=== PATIENT | female | born 1990 | race Asian ===

== ENCOUNTER 2019-05-05 00:27 | Inpatient (IN) | payer MEDICAID ==
[~2019-05-05] VITALS: Ht 165.1 cm; Wt 100.7 kg
[~2019-05-05 00:27] MED LIST: DSS100 PO; IBUP-2071 PO; PNV1TABL54 PO
[2019-05-05 01:23] LABS: GLUCOMETER DEV NAME(LOC) 4S.; GLUCOSE,POINT OF CARE 99 MG/DL (70-110)
[2019-05-05] MEDS ORDERED: OXYTOCIN 30 UNITS/LACT RINGERS 500 ML IV ONE (01:28)
[2019-05-05] MEDS ORDERED: RINGERS SOLUTION,LACTATED 1,000 ML IV SCH (01:28)
[2019-05-05] MEDS ORDERED: RINGERS SOLUTION,LACTATED 1,000 ML IV PRN (01:28)
[2019-05-05] MEDS ORDERED: METOCLOPRAMIDE HCL 5 MG/ML 2 ML VIAL IVP PRN (01:30)
[2019-05-05] MEDS ORDERED: MINERAL OIL 90 ML BOTTLE TP ONE (01:30)
[2019-05-05] MEDS ORDERED: CITRIC ACID/SODIUM CITRATE 30 ML SOLUTION UDCUP PO PRN (01:30)
[2019-05-05] MEDS ORDERED: MINERAL OIL 30 ML UDCUP VG ONE (01:45)
[2019-05-05 01:55] VITALS: BP 134/81
[2019-05-05] MEDS ORDERED: GLYB2.5 PO (02:23)
[2019-05-05 02:29] LABS: BASOPHILS % (AUTO) 0.4 % (0.0-2.0); EOSINOPHILS % (AUTO) 0.8 % (1.0-6.0); HEMATOCRIT 37.4 % (36-46); LYMPHOCYTES # (AUTO) 1.2 K/uL (1.0-4.8); LYMPHOCYTES % (AUTO) 15.4 % (22.0-44.0); MEAN CORPUSCULAR HEMOGLOBIN 32.5 pg (26.0-34.0); MEAN CORPUSCULAR HGB CONC 34.6 G/dL (31.0-37.0); MEAN CORPUSCULAR VOLUME 94 fL (80-100); MONOCYTES # (AUTO) 0.8 K/uL (0.1-1.0); MONOCYTES % (AUTO) 10.2 % (2.0-9.0); NEUTROPHILS # (AUTO) 5.8 K/uL (1.8-7.7); NEUTROPHILS % (AUTO) 73.2 % (40.0-70.0); PLATELET COUNT (AUTO)-OB 180 K/uL (150-450); RED BLOOD CELL COUNT(AUTO) 3.99 MIL/uL (4.00-5.20); RED CELL DISTRIBUTION WIDTH 12.6 % (11.5-14.5)
[2019-05-05] MEDS ORDERED: ROPIVACAINE HCL/PF 0.2% 100 ML ED ONE (02:49)
[2019-05-05] MEDS ORDERED: ROPIVACAINE HCL/PF 0.2% 100 ML ED PRN (03:08)
[2019-05-05] MEDS ORDERED: DiphenhydrAMINE HCL 50 MG/ML VIAL IVP PRN (03:15)
[2019-05-05] MEDS ORDERED: NALBUPHINE HCL 10 MG/ML VIAL IVP PRN (03:15)
[2019-05-05] MEDS ORDERED: ONDANSETRON HCL 4 MG/2 ML VIAL IVP PRN (03:15)
[2019-05-05] MEDS ORDERED: BENZOCAINE 20%/MENTHOL 56 GM SPRAY CANISTER TP PRN (06:45)
[2019-05-05] MEDS ORDERED: GLYCERIN/WITCH HAZEL LEAF 40 PADS JAR TP PRN (06:45)
[2019-05-05] MEDS ORDERED: ACETAMINOPHEN/CODEINE 300-30 MG TABLET PO PRN ×2 (06:45)
[2019-05-05] MEDS ORDERED: LANOLIN 7 GM OINTMENT TP PRN (06:45)
[2019-05-05] MEDS ORDERED: OXYGEN THERAPY IH SCH (08:00)
[2019-05-05] MEDS: MAGNESIUM HYDROXIDE SUSPENSION 30 ML UDCUP PO SCH ×2 (10:05→21:00)
[2019-05-05] MEDS: IBUPROFEN 800 MG TABLET PO SCH ×3 (10:05→19:00)
[2019-05-06] MEDS: IBUPROFEN 800 MG TABLET PO SCH (01:00)
[2019-05-06] MEDS ORDERED: IBUP-2070 PO (08:16)
[2019-05-06] MEDS ORDERED: DOCU-275 PO (08:34)
== END 2019-05-06 11:05 | disposition home or self-care (01) | DRG 560 ==
LOC: OBSVTOIN 00:27 → 4S 00:27
PROVIDERS: ADMIT Obstetrics & Gynecology; ATTEND Obstetrics & Gynecology
PROC: 10D07Z6 Extraction of Products of Conception, Vacuum, Via Natural or Artificial Opening (ICD-10-PCS; principal; 2019-05-05)
PROC: 3E0R3BZ Introduction of Anesthetic Agent into Spinal Canal, Percutaneous Approach (ICD-10-PCS; 2019-05-05)
PROC: 00HU33Z Insertion of Infusion Device into Spinal Canal, Percutaneous Approach (ICD-10-PCS; 2019-05-05)
DX: O69.1XX0 Labor and delivery complicated by cord around neck, with compression, not applicable or unspecified (principal); O76 Abnormality in fetal heart rate and rhythm complicating labor and delivery; Z37.0 Single live birth; Z3A.39 39 weeks gestation of pregnancy; O77.0 Labor and delivery complicated by meconium in amniotic fluid
CPT/HCPCS: 80307; 86592; 86762; 86850; 86900; 86901; 87340; J2590; J2795; J7120